=== PATIENT | male | born 1995 | race Caucasian/White ===

== ENCOUNTER 2016-08-06 09:05 | Emergency (ER) | payer OTHER ==
[~2016-08-06] VITALS: Ht 180.3 cm; Wt 70.1 kg
[2016-08-06] MEDS ORDERED: FLEXERIL10 MG PO (11:46)
[2016-08-06] MEDS ORDERED: MOTRIN800 MG PO (11:46)
[2016-08-06 11:59] LABS: LYME DISEASE SEROLOGY SCREEN NEGATIVE (NEGATIVE)
[2016-08-06 12:41] VITALS: BP 136/91
== END 2016-08-06 12:43 | disposition home or self-care (01) ==
LOC: EME 09:05
PROVIDERS: Nurse Practitioner Family
DX: M62.830 Muscle spasm of back (principal); S43.81XA Sprain of other specified parts of right shoulder girdle, initial encounter
CPT/HCPCS: 73010; 86618; 99281; 99283; J1885

== ENCOUNTER 2016-09-21 17:53 | Inpatient (IN) | payer OTHER ==
[~2016-09-21] VITALS: Ht 180.3 cm; Wt 69.4 kg
[~2016-09-21 17:53] MED LIST: FLEXERIL10 MG PO; MOTRIN800 MG PO
[2016-09-21 18:22] LABS: HEMATOCRIT 45.9 % (38.0-50.0); MCH 29.7 PG (29.0-34.0); MCHC 34.4 G/DL (30.0-36.0); MCV 86.3 FL (86-99); MEAN PLAT.VOLUME 9.5 uM^3 (9.0-12.4); PLATELET COUNT 305 K/uL (156-360); RBC DIS.WIDTH-CV 11.7 % (11.8-14.6); RBC DIS.WIDTH-SD 36.7 % (39-53); RED BLOOD COUNT 5.32 M/uL (4.00-5.50); WHITE BLOOD COUNT 8.3 K/uL (4.1-10.2)
[2016-09-21 18:32] LABS: CHLORIDE 103 mEq/L (99-109); POTASSIUM 4.1 mEq/L (3.7-5.4); SODIUM 139 mEq/L (136-147)
[2016-09-21 18:34] LABS: GLUCOSE 82 mg/dL (70-99)
[2016-09-21 18:35] LABS: ANION GAP 10 MEQ/L (2-14)
[2016-09-21 18:36] LABS: ADD MIUA? YES; BILIRUBIN NEGATIVE; BLOOD NEGATIVE; COLOR YELLOW ((YELLOW)); GLUCOSE (STRIP) NEGATIVE; KETONES NEGATIVE; LEUKOCYTES NEGATIVE; NITRITE NEGATIVE; PROTEIN (STRIP) NEGATIVE; SPECIFIC GRAVITY 1.021 (1.000-1.030); UROBILINOGEN 0.2 MG/DL (0.2-1.0)
[2016-09-21 18:36] LABS: TOTAL BILIRUBIN 0.6 mg/dL (0.0-1.0)
[2016-09-21 18:37] LABS: SERUM ETHYL ALCOHOL < 10 mg/dL
[2016-09-21 18:38] LABS: GFR ESTIMATE (CALCULATED) > 59 mL/min/
[2016-09-21 18:39] LABS: ALKALINE PHOSPHATASE 62 IU/L (3-129)
[2016-09-21 18:40] LABS: UREA NITROGEN (BUN) 18 mg/dL (9-23)
[2016-09-21 18:41] LABS: SALICYLATE < 5.0 MG/DL (15-30)
[2016-09-21 18:54] LABS: ADD MEDTOX COMMENT Y; AMPHETAMINE NEGATIVE (500 ng/mL); BARBITURATES NEGATIVE (200 ng/mL); BENZODIAZEPINES NEGATIVE (150 ng/mL); COCAINE NEGATIVE (150 ng/mL); INTERNAL CONTROLS VALID? YES; METHADONE NEGATIVE (200 ng/mL); METHAMPHETAMINE NEGATIVE (500 ng/mL); OPIATES (MORPHINE) NEGATIVE (100 ng/mL); OXYCODONE NEGATIVE (100 ng/mL); PHENCYCLIDINE NEGATIVE (25 ng/mL); PROPOXYPHENE NEGATIVE (300 ng/mL); THC CANNABINOIDS PRESUMPTIVE POSITIVE (50 ng/mL); TRICYCLIC ANTIDEPRESSANTS NEGATIVE (300 ng/mL)
[2016-09-21 19:08] LABS: AMORPHOUS URATES CRYSTALS 3+; BACTERIA NONE SEEN /HPF; CASTS NONE SEEN /LPF; CRYSTALS PRESENT; EPITHELIAL CELLS RARE /HPF; MUCUS NONE SEEN /LPF; RED BLOOD CELLS NONE SEEN /HPF (0-5); WHITE BLOOD CELLS NONE SEEN /HPF (0-5)
[2016-09-22 12:38] VITALS: BP 128/78
[2016-09-22 12:43] VITALS: BP 128/78
[2016-09-22 15:27] VITALS: BP 119/65
[2016-09-23 07:33] VITALS: BP 139/68
[2016-09-23 15:33] VITALS: BP 157/73
[2016-09-23 18:43] VITALS: BP 141/56
[2016-09-24 07:41] VITALS: BP 119/76
[2016-09-24] MEDS ORDERED: VENLAFAXINE HCL75 M3 PO (09:07)
[2016-09-24] MEDS ORDERED: ARIPIPRAZOLE5 MG PO (09:07)
== END 2016-09-24 10:26 | disposition home or self-care (01) | DRG 885 ==
LOC: EME 17:53 → 1WEST 09-22 11:27 → EDOF 09-22 11:27 → ENRESERV 09-22 12:07 → 1WEST 09-22 12:35
PROVIDERS: Physician Assistant
DX: F33.2 Major depressive disorder, recurrent severe without psychotic features (principal); R45.851 Suicidal ideations; F41.9 Anxiety disorder, unspecified; F10.20 Alcohol dependence, uncomplicated; F12.10 Cannabis abuse, uncomplicated; F17.200 Nicotine dependence, unspecified, uncomplicated; Z81.8 Family history of other mental and behavioral disorders
CPT/HCPCS: 80053; 81003; 84999; 85027; 90839; 99281; 99285; G0480; Q0177